=== PATIENT | male | born 1955 | race Caucasian/White ===

== ENCOUNTER → 2022-04-02 | Outpatient (CLI) | payer OTHER | LOC: KOH-I 10:13 | DX: R60.0 Localized edema (principal); M79.89 Other specified soft tissue disorders | CPT/HCPCS: 73630 ==

== ENCOUNTER → 2022-04-02 | Outpatient (CLI) | payer OTHER | LOC: US 15:30 | DX: R60.9 Edema, unspecified (principal); M79.606 Pain in leg, unspecified | CPT/HCPCS: 93971 ==